=== PATIENT | female | born 1955 | race Caucasian/White ===

== ENCOUNTER → 2020-06-09 | Outpatient (CLI) | payer OTHER | END | disposition home or self-care (01) | LOC: CPPFTMAIN 11:42 | PROVIDERS: ATTEND Internal Medicine Critical Care Medicine | DX: Z53.9 Procedure and treatment not carried out, unspecified reason (principal) | CPT/HCPCS: 94060; 94726; 94729 ==

== ENCOUNTER → 2020-06-16 | Outpatient (CLI) | payer OTHER ==
[2020-06-16 12:37] LABS: African American GFR (CKD) >90 (>60 ml/min/1.73 sqM); Blood Urea Nitrogen 24 mg/dL (7-17); Non-African American GFR(CKD) 81 (>60 ml/min/1.73 sqM)
--- NOTE | 2020-06-16 13:20 | CT ---
EXAMINATION TYPE: CT chest w con DATE OF EXAM: 06/16/2020 COMPARISON: None HISTORY: Lung nodule CT DLP: 396.4 mGycm Automated exposure control for dose reduction was used. CONTRAST: CT scan of the chest is performed with IV Contrast, patient injected with 100 mL of Isovue 300. FINDINGS: LUNGS: The lungs are grossly clear, there is no concerning parenchymal mass or nodule identified. C alcified granuloma left upper lobe. There is no pleural effusion or pneumothorax seen. The tracheobr onchial tree is patent. MEDIASTINUM: There are no greater than 1 cm hilar or mediastinal lymph nodes. No pericardial effusi on is seen. Thoracic aorta is of normal caliber. The heart is not enlarged. UPPER ABDOMEN: Moderate fixed hernia. No significant abnormality appreciated. OTHER: No additional significant abnormality is seen. IMPRESSION: No concerning pulmonary nodule identified. Calcified granuloma left upper lobe.
== END | disposition home or self-care (01) ==
LOC: RADCTMAIN 11:53
PROVIDERS: ATTEND Internal Medicine Critical Care Medicine
DX: J84.10 Pulmonary fibrosis, unspecified (principal); Z88.8 Allergy status to other drugs, medicaments and biological substances; Z88.0 Allergy status to penicillin
CPT/HCPCS: 82565; 84520; 71260; 36415; Q9967

== ENCOUNTER → 2023-11-27 | Outpatient (CLI) | payer OTHER ==
--- NOTE | 2023-11-27 09:52 | MM ---
Reason for Exam: Clinical finding. Indicated Problems: Pain of both sides (Global) : comes and goes. Patient History: Menarche at age 11. First Full-Term at age 18. Left ovary removed at age 48. Right ovary removed at age 48. Hysterectomy at age 38. Postmenopausal. Patient has history of breast feeding. Sister had breast cancer at or over age 50. Risk Values: Alaina 5 year model risk: 3.2%. NCI Lifetime model risk: 9.7%. Tissue Density: The breast tissue is heterogeneously dense. This may lower the sensitivity of mammography. Findings: Analyzed By CAD. Focal asymmetry lateral left breast approximately 2 to 3:00 position for which further ultrasound evaluation is recommended. Benign vascular secretory calcifications also laterally in the left breast have increased from 2020. Otherwise, no significant change. Overall Assessment: Incomplete: need additional imaging evaluation, BI-RAD 0 Management: Diagnostic Breast Ultrasound of both breasts. For bilateral breast pain. Electronically signed and approved by: Leighann Fernandez M.D. Radiologist
--- NOTE | 2023-11-27 09:53 | USB ---
Patient History: Menarche at age 11. First Full-Term at age 18. Left ovary removed at age 48. Right ovary removed at age 48. Hysterectomy at age 38. Postmenopausal. Patient has history of breast feeding. Sister had breast cancer at or over age 50. Risk Values: Alaina 5 year model risk: 3.2%. NCI Lifetime model risk: 9.7%. Findings: The whole breast of both breasts, the axilla of both breasts and the retroareolar of both breasts were scanned. A complete US of all four quadrants of the bilateral breast common axilla, and retro-areolar region were reviewed. No solid or cystic masses are identified. Patches of dense tissue are present. Minimal duct ectasia on the right. Overall Assessment: Probably benign, BI-RAD 3 Management: Diagnostic Mammogram of the left breast in 6 months. Further clinical management of patient's bilateral breast pain. A clinical breast exam by your physician is recommended on an annual basis and results should be correlated with mammographic findings. This exam should not preclude additional follow-up of suspicious palpable abnormalities. Results were given to the patient verbally at the time of exam. Electronically signed and approved by: Leighann Fernandez M.D. Radiologist
== END | disposition home or self-care (01) ==
LOC: RADMAMWWP 06:48
PROVIDERS: ATTEND Family Medicine
DX: R92.333 Mammographic heterogeneous density, bilateral breasts (principal); N64.4 Mastodynia; Z78.0 Asymptomatic menopausal state; Z80.3 Family history of malignant neoplasm of breast
CPT/HCPCS: 77062; 77066

== ENCOUNTER → 2023-12-09 | Outpatient (CLI) | payer OTHER ==
--- NOTE | 2023-12-10 20:09 | BD ---
EXAMINATION TYPE: Axial Bone Density DATE OF EXAM: 12/09/2023 CLINICAL HISTORY: 68 years old Female. ICD-10 CODE: M85.80 [facility] DISRD OF BONE DENSITY AND STRUCTURE, U Height: 63 Weight: 211 FRAX RISK QUESTIONS: Family History (Parent hip fracture): yes Glucocorticoids (More than 3mos): yes (Ex: prednisone, prednisolone, methylprednisolone, dexamethasone, and hydrocortisone). Secondary Osteoporosis: yes 3. Menopause before 45: yes 5. Chronic liver disease: yes, fatty RISK FACTORS HISTORY OF: Family History of Osteoporosis: yes, mother Postmenopausal woman: yes, hyst 1994 at 39 yrs old Take estrogen and/or progesterone medications: yes, for about one yr Lost more than 2 inches in height since high school: yes Hyperparathyroidism: no Adrenal Insufficiency: no MEDICATIONS: Prednisone or other steroids: yes, q olive and albuterol, and prednisone, for many yrs Thyroid Medications: yes, n-p thyroid for many yrs Additional Medications: bp meds, diabetic meds, vit d and calcium, statin for cholesterol, reflux med s Additional History: hypertension, diabetic, cholesterol, copd and asthma, reflux, thyroid, fatty live r disease, EXAM MEASUREMENTS: Bone mineral densitometry was performed using the MMIS System. Bone mineral density as measured about the Lumbar spine is: ----- L1-L4(G/cm2): 1.134 T Score Values are as follows: ----- L1: -0.8 ----- L2: -0.4 ----- L3: -0.8 ----- L4: 0.3 ----- L1-L4: -0.4 Z Score Values are as follows: ----- L1: -0.2 ----- L2: 0.2 ----- L3: -0.2 ----- L4: 0.9 ----- L1-L4: 0.2 Bone mineral density dexa study at [facility]. Bone mineral density about the R hip (g/cm2): 0.942 Bone mineral density about the L hip (g/cm2): 1.038 T Score values are as follows: -----R Neck: -1.2 -----L Neck: -1.4 -----R Total: -0.5 -----L Total: 0.2 Z Score values are as follows: -----R Neck: -0.4 -----L Neck: -0.2 -----R Total: 0.2 -----L Total: 0.9 Bone mineral density first dexa study at [facility]. FRAX%s: The graph provided illustrates a 21.5% chance for a major osteoporotic fx and a 3.6% chance for the hips probability for fx in 10 years time. IMPRESSION: Osteopenia (T Score between -2.5 and -1). There is slightly increased risk of fracture and the patient may be considered for treatment. Re-Screen 2-5 years. NOTE: T-SCORE=SD OF THE YOUNG ADULT MEAN.
== END | disposition home or self-care (01) ==
LOC: RADBDWWP 11:23
PROVIDERS: ATTEND Family Medicine
DX: M85.89 Other specified disorders of bone density and structure, multiple sites (principal); Z78.0 Asymptomatic menopausal state
CPT/HCPCS: 77080